=== PATIENT | female | born 1950 | race African-American/Black ===

== ENCOUNTER 2023-01-31 14:02 | Emergency (ER) | payer OTHER ==
[~2023-01-31] VITALS: Ht 160 cm; Wt 64.0 kg
[2023-01-31 17:44] VITALS: BP 124/80; TEMP 98; O2SAT 100
== END 2023-01-31 17:45 | disposition home or self-care (01) ==
LOC: ER 14:08
DX: S00.33XA Contusion of nose, initial encounter (principal); S00.12XA Contusion of left eyelid and periocular area, initial encounter; I10 Essential (primary) hypertension; Z88.5 Allergy status to narcotic agent; Z60.2 Problems related to living alone; W10.9XXA Fall (on) (from) unspecified stairs and steps, initial encounter; Y93.89 Activity, other specified; Y92.89 Other specified places as the place of occurrence of the external cause; Y99.8 Other external cause status
CPT/HCPCS: 70450-TC; 70486-TC